=== PATIENT | female | born 1990 | race Two or more races ===

== ENCOUNTER 2022-03-08 17:20 | Emergency (ER) | payer OTHER ==
[~2022-03-08] VITALS: Ht 165.1 cm; Wt 61.2 kg
[2022-03-08 18:57] VITALS: BP 126/65
== END 2022-03-08 19:06 | disposition left against medical advice (07) ==
LOC: ER 17:20
DX: R10.30 Lower abdominal pain, unspecified (principal); Z53.21 Procedure and treatment not carried out due to patient leaving prior to being seen by health care provider; V43.52XA Car driver injured in collision with other type car in traffic accident, initial encounter; Y93.89 Activity, other specified; Y92.89 Other specified places as the place of occurrence of the external cause; Y99.8 Other external cause status